=== PATIENT | male | born 1945 | race Caucasian/White ===

== ENCOUNTER 2017-04-07 07:41 | Day surgery (SDC) | payer MEDICARE ==
[~2017-04-07] VITALS: Ht 182.9 cm; Wt 106.6 kg
[~2017-04-07 07:41] MED LIST: AMLODIPINE10 MG PO; ASPIRIN LOW DOS81 M2 PO; CILOSTAZOL100 MG PO; LOSARTAN POT100 MG PO; LOVASTATIN40 MG PO; NABUMETONE500 MG PO; OMEPRAZOLE20 M1 PO; PRAVASTATIN10 MG PO
[2017-04-07 14:27] VITALS: BP 135/72
== END 2017-04-07 10:54 | disposition home or self-care (01) ==
LOC: ENDO 07:41 → ORM 10:55 → ENDO 10:55 → ORM 12:00
PROVIDERS: ATTEND Surgery
PROC: 0DB98ZX Excision of Duodenum, Via Natural or Artificial Opening Endoscopic, Diagnostic (ICD-10-PCS; principal; 2017-04-07)
PROC: 0DBF8ZX Excision of Right Large Intestine, Via Natural or Artificial Opening Endoscopic, Diagnostic (ICD-10-PCS; 2017-04-07)
PROC: 0DBP8ZX Excision of Rectum, Via Natural or Artificial Opening Endoscopic, Diagnostic (ICD-10-PCS; 2017-04-07)
PROC: 3E0H8GC Introduction of Other Therapeutic Substance into Lower GI, Via Natural or Artificial Opening Endoscopic (ICD-10-PCS; 2017-04-07)
DX: R19.5 Other fecal abnormalities (principal); D64.9 Anemia, unspecified; K31.7 Polyp of stomach and duodenum; K63.5 Polyp of colon; D12.8 Benign neoplasm of rectum; K57.30 Diverticulosis of large intestine without perforation or abscess without bleeding; K29.70 Gastritis, unspecified, without bleeding; K44.9 Diaphragmatic hernia without obstruction or gangrene; E78.5 Hyperlipidemia, unspecified; I10 Essential (primary) hypertension; I73.9 Peripheral vascular disease, unspecified; Z95.828 Presence of other vascular implants and grafts

== ENCOUNTER 2017-05-26 06:00 | Day surgery (SDC) | payer MEDICARE ==
[~2017-05-26] VITALS: Ht 182.9 cm; Wt 106.6 kg
[~2017-05-26 06:00] MED LIST changes: +MELOXICAM15 MG PO
[2017-05-26 09:46] VITALS: BP 119/60
== END 2017-05-26 10:45 | disposition home or self-care (01) ==
LOC: ORM 06:00
PROVIDERS: ATTEND Surgery
PROC: 0DBP8ZZ Excision of Rectum, Via Natural or Artificial Opening Endoscopic (ICD-10-PCS; principal; 2017-05-26)
DX: D12.8 Benign neoplasm of rectum (principal); I10 Essential (primary) hypertension; E78.5 Hyperlipidemia, unspecified; I73.9 Peripheral vascular disease, unspecified

== ENCOUNTER → 2018-10-12 | Outpatient (REF) | payer MEDICARE | END | disposition home or self-care (01) | LOC: DI 08:51 | PROVIDERS: ATTEND Nurse Practitioner Family | DX: R05 Cough (principal); R50.9 Fever, unspecified ==

== ENCOUNTER → 2018-10-17 | Outpatient (REF) | payer MEDICARE | END | disposition home or self-care (01) | LOC: LABSPEC 10:55 | PROVIDERS: ATTEND Nurse Practitioner | DX: R05 Cough (principal) ==

== ENCOUNTER → 2018-10-17 | Outpatient (REF) | payer MEDICARE | END | disposition home or self-care (01) | LOC: DI 09:45 | PROVIDERS: ATTEND Nurse Practitioner | DX: R05 Cough (principal) ==